=== PATIENT | female | born 1980 | race Two or more races ===

== ENCOUNTER → 2024-08-08 06:34 | Outpatient (CLI) | payer OTHER ==
[2024-08-08 07:37] LABS: URINE APPEARANCE Clear; URINE BILIRRUBIN Negative (NEGATIVE); URINE BLOOD Negative; URINE COLOR Yellow; URINE GLUCOSE Negative (NEGATIVE); URINE KETONE Negative (NEGATIVE); URINE LEUKOCYTE Negative; URINE NITRATE Negative; URINE PROTEIN Negative (NEGATIVE); URINE UROBILINOGEN 0.2 E.U./dl
[2024-08-08 07:39] LABS: URINE BACTERIA 205.5 uL (0.0-1933); URINE CAST 0.14 uL (0.0-1.40); URINE EPITHELIAL CELLS 23.7 uL (0.0-38.8); URINE RBC 2.9 uL (0.0-20.8); URINE WBC 4.1 uL (0.0-23.2)
[2024-08-08 07:48] LABS: HEMATOCRIT 34.2 % (36.0-45.00); HEMOGLOBIN 11.7 g/dL (12.0-15.00); MEAN CELL VOLUME 98.5 fL (80.00-100.00); MEAN CORPUSCULAR HEMOGLOBIN 33.7 pg (27.00-32.0); MEAN CORPUSCULAR HGB CONC 34.2 g/dl (32.0-36.0); PLATELET COUNT 272 K/uL (150-450); RED BLOOD COUNT 3.47 M/uL (4.00-6.00); RED CELL DISTRIBUTION WIDTH 12.2 % (11.5-14.5)
[2024-08-08 08:04] LABS: ALBUMIN 3.4 gm/dL (3.4-5.0); ALKALINE PHOSPHATASE 50 U/L (50-136); ALT/SGPT 12 U/L (12-78); ANION GAP 5 (10.0-20.0); AST/SGOT 15 U/L (15-37); BILIRUBIN TOTAL 0.36 mg/dL (0.3-1.2); BILIRUBIN,CONJUGATED < 0.10 mg/dL (0.0-0.2); BILIRUBIN,UNCONJUGATED 0.26 mg/dL (0.0-0.6); BLOOD UREA NITROGEN 13 mg/dL (7-18); BUN CREA RATIO 17 (7.0-25.0); CALCIUM 8.4 mg/dL (8.5-10.1); CARBON DIOXIDE 31 mEq/L (21-32); CHLORIDE 109 mmol/L (98-107); CHOL HDL RATIO 3.2 (0-5.0); CHOLESTEROL 199 mg/dL (0-200); CREATININE SERUM 0.76 mg/dL (0.55-1.02); GLOBULINA 3.6 G/DL (2.4-3.5); GLUCOSE FASTING 92 mg/dL (65-100); HDL 62 mg/dl (40-60); LDL 124 mg/dl (0-130); OSMOLALITY SERUM 281 MOSM/KG (275-295); POTASSIUM 4.06 mEq/L (3.5-5.1); SODIUM 141 mmol/L (136-145); T4 FREE 0.95 NG/ML (0.76-1.46); TRIGLYCERIDES 67 mg/dL (0-150); VLDL 13 (0-39)
[2024-08-08 08:08] LABS: C-REACTIVE PROTEIN < 0.29 MG/DL (0.00-0.29)
[2024-08-09 08:04] LABS: hav igm Negative (Negative); hcv Non Reactive (Non Reactive); hep b c Negative (Negative); hep b s ag Negative (Negative)
[2024-08-09 10:08] LABS: INSULIN LEVELS 3.1 uIU/mL (2.6-24.9)
[2024-08-10 00:04] LABS: chla t Negative (Negative); neiss Negative (Negative)
== END | disposition home or self-care (01) ==
LOC: LAB 06:34
PROVIDERS: ATTEND General Practice
DX: B00.9 Herpesviral infection, unspecified (principal); B19.9 Unspecified viral hepatitis without hepatic coma; Z00.01 Encounter for general adult medical examination with abnormal findings; A64 Unspecified sexually transmitted disease; Z11.3 Encounter for screening for infections with a predominantly sexual mode of transmission; Z11.4 Encounter for screening for human immunodeficiency virus [HIV]; R74.8 Abnormal levels of other serum enzymes; N20.0 Calculus of kidney; K76.9 Liver disease, unspecified; R82.2 Biliuria; R10.2 Pelvic and perineal pain; R10.9 Unspecified abdominal pain; Z13.29 Encounter for screening for other suspected endocrine disorder; R53.83 Other fatigue; R78.2 Finding of cocaine in blood; R73.09 Other abnormal glucose; E27.8 Other specified disorders of adrenal gland

== ENCOUNTER 2024-09-15 07:27 | Outpatient (CLI) | payer OTHER | END 2024-09-15 07:41 | disposition home or self-care (01) | LOC: MAMO-SONO 07:27 | PROVIDERS: ATTEND Obstetrics & Gynecology Gynecology | DX: N60.11 Diffuse cystic mastopathy of right breast (principal); N60.12 Diffuse cystic mastopathy of left breast; R10.2 Pelvic and perineal pain ==

== ENCOUNTER → 2024-09-15 | Outpatient (CLI) | payer OTHER | END | disposition home or self-care (01) | LOC: LAB 09:50 | PROVIDERS: ATTEND Obstetrics & Gynecology Gynecology | DX: N39.0 Urinary tract infection, site not specified (principal) ==

== ENCOUNTER 2024-10-12 08:21 | Outpatient (CLI) | payer OTHER | END 2024-10-12 08:23 | disposition home or self-care (01) | LOC: SONOGRAMA 08:21 | PROVIDERS: ATTEND Obstetrics & Gynecology Gynecology | DX: N39.0 Urinary tract infection, site not specified (principal) ==

== ENCOUNTER 2024-10-23 15:39 | Outpatient (CLI) | payer OTHER ==
[2024-10-23 16:39] LABS: CREATININE SERUM 0.74 mg/dL (0.55-1.02)
== END 2024-10-23 23:00 | disposition home or self-care (01) ==
LOC: LAB 15:39
PROVIDERS: ATTEND Obstetrics & Gynecology
DX: N72 Inflammatory disease of cervix uteri (principal); D25.1 Intramural leiomyoma of uterus; Z01.818 Encounter for other preprocedural examination; Z01.812 Encounter for preprocedural laboratory examination

== ENCOUNTER 2025-02-09 08:54 | Outpatient (CLI) | payer OTHER | END 2025-02-09 09:14 | disposition home or self-care (01) | LOC: MRI 08:54 | PROVIDERS: ATTEND Obstetrics & Gynecology | DX: N72 Inflammatory disease of cervix uteri (principal); D25.1 Intramural leiomyoma of uterus | CPT/HCPCS: 72197 ==

== ENCOUNTER 2025-04-20 12:36 | Emergency (ER) | payer OTHER ==
[~2025-04-20] VITALS: Ht 157.5 cm; Wt 61.2 kg
[2025-04-20] MEDS ORDERED: FAMOTIDINE/PF 20 MG/2 ML VIAL ONE (15:42)
[2025-04-20] MEDS ORDERED: ONDANSETRON HCL 2 MG/ML VIAL ONE (15:42)
[2025-04-20] MEDS ORDERED: MECLIZINE HCL 25 MG TABLET PO ONE ×2 (15:42→15:45)
[2025-04-20] MEDS ORDERED: 0.9 % SODIUM CHLORIDE 500 ML IV ONE (15:45)
[2025-04-20] MEDS ORDERED: FAMOTIDINE/PF 20 MG/2 ML VIAL IV ONE (15:45)
[2025-04-20] MEDS ORDERED: ONDANSETRON HCL 2 MG/ML VIAL IV ONE (15:45)
[2025-04-20 16:12] LABS: BASO % 0.6 % (0.1-1.2); EOS # 0.12 (0.04-0.54); EOS % 1.7 % (0.7-7.0); LYMPH # 2.45 (1.18-3.74); LYMPH % 35.6 % (19.3-53.1); MEAN PLATELET VOLUME 9.10 fl (9.4-12.4); MONO # 0.48 (0.24-0.82); MONO % 7.0 % (4.7-12.5); NEUT # 3.77 (1.56-6.13); NEUT % 54.8 % (34.0-71.1); RED CELL DISTRIBUTION WIDTH 11.9 % (11.6-14.4)
[2025-04-20 16:56] LABS: ALT/SGPT 25.0 U/L (12-78); AST/SGOT 31.0 U/L (15-37); BILIRUBIN TOTAL 0.38 mg/dL (0.3-1.2); BUN CREA RATIO 20.0 (7.0-25.0); CREATININE SERUM 0.76 mg/dL (0.55-1.02); GFR 81.93; GLOBULINA 4.1 G/DL (2.4-3.5); GLUCOSE FASTING 97.0 mg/dL (65-100); OSMOLALITY SERUM 282.0 MOSM/KG (275-295)
[2025-04-20 17:12] LABS: COVID-19 AG NEGATIVE (NEGATIVE)
[2025-04-20] MEDS ORDERED: ONDANSETRON ODT4 MG PO (19:27)
[2025-04-20] MEDS ORDERED: MECLIZINE HCL25 MG PO (19:27)
== END 2025-04-20 19:58 ==
LOC: ER 12:36
PROVIDERS: General Practice
DX: H93.11 Tinnitus, right ear (principal); R42 Dizziness and giddiness; Z20.822 Contact with and (suspected) exposure to COVID-19

== ENCOUNTER 2025-05-03 12:44 | Outpatient (CLI) | payer OTHER ==
[~2025-05-03 12:44] MED LIST: MECLIZINE HCL25 MG PO; ONDANSETRON ODT4 MG PO
== END 2025-05-03 12:50 | disposition home or self-care (01) ==
LOC: RAD 12:44
DX: M60.89 Other myositis, multiple sites (principal); M54.17 Radiculopathy, lumbosacral region; M24.551 Contracture, right hip; M65.852 Other synovitis and tenosynovitis, left thigh